=== PATIENT | female | born 1945 | race Two or more races ===

== ENCOUNTER → 2022-07-13 | Outpatient (CLI) | payer OTHER ==
[2022-07-13 08:47] LABS: Basophils # (auto) 0 10 ^3/uL (0-0.2); Eosinophils # (auto) 0.2 10 ^3/uL (0-0.8); Hemoglobin 10.2 g/dL (12.2-16.2); Lymphocytes # (auto) 0.8 10 ^3/uL (0.4-5.4); Mean Corpuscular Volume 81.9 fL (80.0-100.0); Monocytes # (auto) 0.4 10 ^3/uL (0-1.3); Neutrophils # (auto) 2.7 10 ^3/uL (1.6-8.6); White Blood Cell 4.1 10^3/uL (4.4-10.8)
[2022-07-13 08:49] LABS: Basophils % (auto) 0.9 % (0.0-2.0); Eosinophils % (auto) 4.4 % (0.0-7.0); Hematocrit 33.1 % (36.0-46.0); Lymphocytes % (auto) 18.6 % (10.0-50.0); Mean Corpuscular Hemoglobin 25.3 pg (28.0-32.0); Mean Corpuscular Hgb Conc. 30.9 g/dL (32.0-36.0); Monocytes % (auto) 9.1 % (0.0-12.0); Nucleated Red Blood Cells % 0.2 %; Red Blood Cells 4.04 10^6/uL (4.0-5.20); Red Cell Distribution Width 16.1 % (11.8-14.3)
[2022-07-13 09:11] LABS: Calcium 9.3 mg/dL (8.5-10.1); Potassium 4.9 mmol/L (3.5-5.1)
[2022-07-13 09:14] LABS: BUN/Creatinine Ratio 18.4; Bilirubin, Total 0.5 mg/dL (0.2-1.0); Total Protein 8.8 g/dL (6.4-8.2)
[2022-07-14 08:06] LABS: Immunoglobulin G, Serum 1306 mg/dL (586-1602)
== END | disposition home or self-care (01) ==
LOC: LAB 08:18
DX: I12.9 Hypertensive chronic kidney disease with stage 1 through stage 4 chronic kidney disease, or unspecified chronic kidney disease (principal); E11.22 Type 2 diabetes mellitus with diabetic chronic kidney disease; N18.32 Chronic kidney disease, stage 3b; E11.69 Type 2 diabetes mellitus with other specified complication; D63.1 Anemia in chronic kidney disease; R91.8 Other nonspecific abnormal finding of lung field; D47.2 Monoclonal gammopathy
CPT/HCPCS: 36415; 80053; 82232; 82784; 83615; 84155; 84165; 85025; 85652; 86334; 86335

== ENCOUNTER → 2022-08-06 | Outpatient (CLI) | payer OTHER ==
[2022-08-06 08:10] LABS: Basophils # (auto) 0 10 ^3/uL (0-0.2); Eosinophils # (auto) 0.2 10 ^3/uL (0-0.8); Lymphocytes # (auto) 0.8 10 ^3/uL (0.4-5.4); Monocytes # (auto) 0.5 10 ^3/uL (0-1.3)
[2022-08-06 08:13] LABS: Basophils % (auto) 0.6 % (0.0-2.0); Eosinophils % (auto) 4.1 % (0.0-7.0); Hematocrit 30.5 % (36.0-46.0); Hemoglobin 9.9 g/dL (12.2-16.2); Lymphocytes % (auto) 18.6 % (10.0-50.0); Mean Corpuscular Hemoglobin 26.5 pg (28.0-32.0); Mean Corpuscular Hgb Conc. 32.5 g/dL (32.0-36.0); Mean Corpuscular Volume 81.6 fL (80.0-100.0); Monocytes % (auto) 11.7 % (0.0-12.0); Neutrophils # (auto) 2.8 10 ^3/uL (1.6-8.6); Nucleated Red Blood Cells % 0.2 %; Red Blood Cells 3.74 10^6/uL (4.0-5.20); Urine Bacteria NONE SEEN /hpf (None Seen); Urine Blood Negative /uL (Negative); Urine Specific Gravity 1.007 (1.001-1.035); Urine WBC <1 /hpf (0 - 5); White Blood Cell 4.3 10^3/uL (4.4-10.8)
[2022-08-06 09:13] LABS: Albumin 3.8 g/dL (3.4-5.0); BUN/Creatinine Ratio 21.5; Phosphorus 4.4 mg/dL (2.5-4.90); Potassium 4.5 mmol/L (3.5-5.1); Protein, Urine 24.7 mg/dL (0.0-11.9); Uric Acid 5.3 mg/dL (2.6-6.0)
== END | disposition home or self-care (01) ==
LOC: LAB 07:45
PROVIDERS: ATTEND Internal Medicine
DX: N18.30 Chronic kidney disease, stage 3 unspecified (principal); R80.9 Proteinuria, unspecified; E21.3 Hyperparathyroidism, unspecified; D63.1 Anemia in chronic kidney disease; M10.9 Gout, unspecified; E56.9 Vitamin deficiency, unspecified; R82.90 Unspecified abnormal findings in urine
CPT/HCPCS: 36415; 80069; 81001; 82306; 82570; 83970; 84156; 84550; 85025

== ENCOUNTER → 2022-08-18 | Outpatient (CLI) | payer OTHER ==
[2022-08-18 07:59] LABS: Basophils # (auto) 0 10 ^3/uL (0-0.2); Eosinophils # (auto) 0.2 10 ^3/uL (0-0.8); Eosinophils % (auto) 4.5 % (0.0-7.0); Mean Corpuscular Hgb Conc. 31.8 g/dL (32.0-36.0); Monocytes # (auto) 0.4 10 ^3/uL (0-1.3); Neutrophils # (auto) 2.6 10 ^3/uL (1.6-8.6)
[2022-08-18 08:01] LABS: Hematocrit 30.6 % (36.0-46.0); Hemoglobin 9.7 g/dL (12.2-16.2); Lymphocytes # (auto) 0.7 10 ^3/uL (0.4-5.4); Lymphocytes % (auto) 18.5 % (10.0-50.0); Mean Corpuscular Hemoglobin 25.9 pg (28.0-32.0); Mean Corpuscular Volume 81.5 fL (80.0-100.0); Monocytes % (auto) 11.1 % (0.0-12.0); Neutrophils % (auto) 64.9 % (37.0-80.0); Nucleated Red Blood Cells % 0.2 %; Red Blood Cells 3.75 10^6/uL (4.0-5.20)
[2022-08-18 08:34] LABS: Urine Bacteria NONE SEEN /hpf (None Seen); Urine Blood Negative /uL (Negative); Urine Specific Gravity 1.006 (1.001-1.035); Urine WBC 1 /hpf (0 - 5)
[2022-08-18 08:36] LABS: Albumin 3.5 g/dL (3.4-5.0); Calcium 9.2 mg/dL (8.5-10.1); Potassium 4.8 mmol/L (3.5-5.1)
[2022-08-18 08:42] LABS: Bilirubin, Total 0.3 mg/dL (0.2-1.0); Total Protein 8.1 g/dL (6.4-8.2)
== END | disposition home or self-care (01) ==
LOC: LAB 07:40
PROVIDERS: ATTEND Family Medicine
DX: I12.9 Hypertensive chronic kidney disease with stage 1 through stage 4 chronic kidney disease, or unspecified chronic kidney disease (principal); E11.22 Type 2 diabetes mellitus with diabetic chronic kidney disease; N18.9 Chronic kidney disease, unspecified; D50.9 Iron deficiency anemia, unspecified; E44.1 Mild protein-calorie malnutrition
CPT/HCPCS: 36415; 80053; 80061; 81001; 83036; 83540; 84443; 85025

== ENCOUNTER → 2022-09-02 | Outpatient (CLI) | payer OTHER ==
[2022-09-02 08:59] LABS: Basophils # (auto) 0.1 10 ^3/uL (0-0.2); Eosinophils # (auto) 0.2 10 ^3/uL (0-0.8); Hemoglobin 9.8 g/dL (12.2-16.2); Lymphocytes # (auto) 0.6 10 ^3/uL (0.4-5.4); Nucleated Red Blood Cells % 0.2 %
[2022-09-02 09:01] LABS: Basophils % (auto) 1.4 % (0.0-2.0); Eosinophils % (auto) 4.2 % (0.0-7.0); Hematocrit 29.8 % (36.0-46.0); Lymphocytes % (auto) 12.3 % (10.0-50.0); Mean Corpuscular Hemoglobin 26.1 pg (28.0-32.0); Mean Corpuscular Hgb Conc. 32.9 g/dL (32.0-36.0); Mean Corpuscular Volume 79.4 fL (80.0-100.0); Monocytes # (auto) 0.5 10 ^3/uL (0-1.3); Monocytes % (auto) 11.6 % (0.0-12.0); Neutrophils # (auto) 3.2 10 ^3/uL (1.6-8.6); Neutrophils % (auto) 70.5 % (37.0-80.0); Red Blood Cells 3.75 10^6/uL (4.0-5.20); Red Cell Distribution Width 15.8 % (11.8-14.3); White Blood Cell 4.5 10^3/uL (4.4-10.8)
[2022-09-02 09:33] LABS: Albumin 3.5 g/dL (3.4-5.0); Calcium 9.1 mg/dL (8.5-10.1); Potassium 4.6 mmol/L (3.5-5.1)
[2022-09-02 09:39] LABS: BUN/Creatinine Ratio 16.5 (10.0-20.0); Bilirubin, Total 0.4 mg/dL (0.2-1.0); Total Protein 8.3 g/dL (6.4-8.2)
== END | disposition home or self-care (01) ==
LOC: LAB 07:56
PROVIDERS: ATTEND Family Medicine
DX: E11.9 Type 2 diabetes mellitus without complications (principal); E27.1 Primary adrenocortical insufficiency; D64.9 Anemia, unspecified
CPT/HCPCS: 36415; 80053; 80061; 82024; 82043; 82533; 83036; 85025

== ENCOUNTER 2022-09-17 11:10 | Inpatient (IN) | payer OTHER ==
[~2022-09-17] VITALS: Ht 160 cm; Wt 53.6 kg
[2022-09-17 12:09] LABS: Basophils # (auto) 0 10 ^3/uL (0-0.2); Basophils % (auto) 0.3 % (0.0-2.0); Eosinophils # (auto) 0.1 10 ^3/uL (0-0.8); Eosinophils % (auto) 1.4 % (0.0-7.0); Hematocrit 30.9 % (36.0-46.0); Hemoglobin 9.9 g/dL (12.2-16.2); Lymphocytes # (auto) 0.5 10 ^3/uL (0.4-5.4); Mean Corpuscular Hgb Conc. 32.1 g/dL (32.0-36.0); Mean Corpuscular Volume 80.8 fL (80.0-100.0); Monocytes # (auto) 0.7 10 ^3/uL (0-1.3); Monocytes % (auto) 9.7 % (0.0-12.0); Neutrophils # (auto) 5.9 10 ^3/uL (1.6-8.6); Neutrophils % (auto) 81.6 % (37.0-80.0); Nucleated Red Blood Cells % 0.4 %; Red Blood Cells 3.83 10^6/uL (4.0-5.20); Red Cell Distribution Width 17.3 % (11.8-14.3); White Blood Cell 7.2 10^3/uL (4.4-10.8)
[2022-09-17 12:33] LABS: Albumin 3.2 g/dL (3.4-5.0); Calcium 8.8 mg/dL (8.5-10.1); Potassium 4.9 mmol/L (3.5-5.1)
[2022-09-17 12:36] LABS: BUN/Creatinine Ratio 16.6 (10.0-20.0); Bilirubin, Total 0.5 mg/dL (0.2-1.0); Total Protein 7.7 g/dL (6.4-8.2)
[2022-09-17] MEDS ORDERED: ASPirin 325 MG TAB PO ONE ×2 (13:00→18:45)
[2022-09-17] MEDS ORDERED: FUROSEMIDE 20 MG/2 ML VIAL IV ONE ×2 (15:00→17:00)
[2022-09-17] MEDS ORDERED: DEXTROSE (50%) 50ML SYRG IV PRN (16:15)
[2022-09-17] MEDS: AZITHROMYCIN 500MG/ 250ML 250 ML IV SCH (16:47)
[2022-09-17] MEDS ORDERED: ALBUTEROL SULF 2.5 MG/0.5ML(0.5%) NEB SOLN NEB PRN (17:30)
[2022-09-17] MEDS ORDERED: IPRATROPIUM BROM 0.5 MG/2.5ML INH SOL NEB PRN (17:30)
[2022-09-17] MEDS: ACCU-CHEK COMFORT CURVE STRIP VI SCH (18:53)
[2022-09-17] MEDS: cefTRIAXone 1GM/50ML D5W 50 ML IV SCH (18:53)
[2022-09-17] MEDS: InsuLIN REG 1unit/0.01ml Soln (100units/ml) SC SCH (19:04)
[2022-09-17] MEDS: PANTOPRAZOLE 40 MG/10 ML VIAL INJ IV SCH (19:04)
[2022-09-17] MEDS: FUROSEMIDE 40 MG/4 ML VIAL IV SCH (19:12)
[2022-09-17 19:17] VITALS: BP 152/69
[2022-09-18] MEDS: InsuLIN REG 1unit/0.01ml Soln (100units/ml) SC SCH ×6 (01:20→21:29)
[2022-09-18] MEDS: ACCU-CHEK COMFORT CURVE STRIP VI SCH ×5 (01:20→21:26)
[2022-09-18] MEDS: ATORVASTATIN 20 MG TAB PO SCH ×2 (01:21→21:25)
[2022-09-18 03:04] LABS: Creatinine, Urine 23 mg/dL (30.0-125.0); Sodium Urine 102 mmol/L (40-220)
[2022-09-18 04:48] LABS: Basophils # (auto) 0 10 ^3/uL (0-0.2); Eosinophils # (auto) 0.1 10 ^3/uL (0-0.8); Lymphocytes # (auto) 0.3 10 ^3/uL (0.4-5.4)
[2022-09-18 04:52] LABS: Basophils % (auto) 0.1 % (0.0-2.0); Hematocrit 28.5 % (36.0-46.0); Hemoglobin 9.7 g/dL (12.2-16.2); Lymphocytes % (auto) 4.8 % (10.0-50.0); Mean Corpuscular Hemoglobin 26.8 pg (28.0-32.0); Mean Corpuscular Hgb Conc. 34.2 g/dL (32.0-36.0); Mean Corpuscular Volume 78.3 fL (80.0-100.0); Monocytes # (auto) 0.8 10 ^3/uL (0-1.3); Monocytes % (auto) 11.4 % (0.0-12.0); Neutrophils # (auto) 5.8 10 ^3/uL (1.6-8.6); Neutrophils % (auto) 82.7 % (37.0-80.0); Nucleated Red Blood Cells % 0.2 %; Red Blood Cells 3.64 10^6/uL (4.0-5.20); Red Cell Distribution Width 16.8 % (11.8-14.3)
[2022-09-18 05:06] LABS: Potassium 4.5 mmol/L (3.5-5.1)
[2022-09-18 05:15] LABS: BUN/Creatinine Ratio 20.3 (10.0-20.0); Calcium 8.8 mg/dL (8.5-10.1)
[2022-09-18 05:18] LABS: Bilirubin, Total 0.3 mg/dL (0.2-1.0); Total Protein 7.9 g/dL (6.4-8.2)
[2022-09-18] MEDS: FUROSEMIDE 40 MG/4 ML VIAL IV SCH ×2 (06:51→18:12)
[2022-09-18 09:20] VITALS: BP 128/63
[2022-09-18 09:25] VITALS: BP 128/63
[2022-09-18] MEDS: ASPirin 81 mg TAB PO SCH (09:26)
[2022-09-18] MEDS: PANTOPRAZOLE 40 MG/10 ML VIAL INJ IV SCH (09:26)
[2022-09-18] MEDS: ENOXAPARIN SOD 30 MG/0.3 ML SYRINGE SC SCH (09:27)
[2022-09-18] MEDS: LISINOPRIL 5 MG TAB PO SCH (09:27)
[2022-09-18] MEDS: cefTRIAXone 1GM/50ML D5W 50 ML IV SCH (09:28)
[2022-09-18] MEDS ORDERED: ALEN70TA74 PO (09:52)
[2022-09-18] MEDS ORDERED: FERR325T20 PO (09:52)
[2022-09-18] MEDS ORDERED: GLIP2.5T28 PO (09:52)
[2022-09-18] MEDS ORDERED: GLIP-110 PO (09:52)
[2022-09-18] MEDS ORDERED: SIMV10TA84 PO (09:52)
[2022-09-18] MEDS ORDERED: GLUC-149 XX (09:52)
[2022-09-18] MEDS ORDERED: SITA25TA3 PO (09:52)
[2022-09-18] MEDS ORDERED: LOS25T PO (09:52)
[2022-09-18] MEDS ORDERED: AMLO-496 PO (09:52)
[2022-09-18] MEDS ORDERED: ATEN50TA PO (09:52)
[2022-09-18] MEDS ORDERED: GABA300C10 PO (09:52)
[2022-09-18] MEDS ORDERED: LANC-347 TOP (09:52)
[2022-09-18] MEDS ORDERED: DICL1GEL86 EX (10:01)
[2022-09-18] MEDS: AZITHROMYCIN 500MG/ 250ML 250 ML IV SCH (10:47)
[2022-09-18 12:30] VITALS: BP 122/64
[2022-09-18] MEDS: GABAPENTIN 300 MG CAP PO SCH ×2 (16:14→21:25)
[2022-09-18 16:35] LABS: Urine Bacteria NONE SEEN /hpf (None Seen); Urine Blood Negative /uL (Negative); Urine Specific Gravity 1.008 (1.001-1.035); Urine WBC 1 /hpf (0 - 5)
[2022-09-18 17:08] VITALS: BP 122/60
[2022-09-18 22:00] VITALS: BP 119/59
[2022-09-19 05:00] VITALS: BP 120/60
[2022-09-19] MEDS: FUROSEMIDE 40 MG/4 ML VIAL IV SCH (05:25)
[2022-09-19] MEDS: ACCU-CHEK COMFORT CURVE STRIP VI SCH ×4 (06:24→21:16)
[2022-09-19] MEDS: InsuLIN REG 1unit/0.01ml Soln (100units/ml) SC SCH ×4 (06:25→21:19)
[2022-09-19 06:47] LABS: Anion Gap 10 (5-15); Carbon Dioxide 24 mmol/L (21-32); Chloride 100 mmol/L (98-107); Glucose 212 mg/dL (74-106); Potassium 4.4 mmol/L (3.5-5.1); Sodium 134 mmol/L (136-145)
[2022-09-19 06:50] LABS: BUN/Creatinine Ratio 19.6 (10.0-20.0); Blood Urea Nitrogen 39 mg/dL (7-18); GFR African American 31 mL/min; GFR Non-African American 26 mL/min
[2022-09-19 09:00] VITALS: BP 142/68
[2022-09-19] MEDS: GABAPENTIN 300 MG CAP PO SCH ×2 (09:41→21:15)
[2022-09-19] MEDS: ASPirin 81 mg TAB PO SCH (09:41)
[2022-09-19] MEDS: cefTRIAXone 1GM/50ML D5W 50 ML IV SCH (09:41)
[2022-09-19] MEDS: PANTOPRAZOLE 40 MG/10 ML VIAL INJ IV SCH (09:42)
[2022-09-19] MEDS: LISINOPRIL 5 MG TAB PO SCH (09:42)
[2022-09-19] MEDS: ENOXAPARIN SOD 30 MG/0.3 ML SYRINGE SC SCH (09:42)
[2022-09-19] MEDS: AZITHROMYCIN 500MG/ 250ML 250 ML IV SCH ×2 (10:51→12:51)
[2022-09-19 13:00] VITALS: BP 108/55
[2022-09-19] MEDS ORDERED: amLODIPine BESYLATE 5 MG TAB PO ONE (13:15)
[2022-09-19] MEDS ORDERED: METOPROLOL SUCCINATE XL 50 MG TAB PO ONE (14:30)
[2022-09-19] MEDS: ACETAMINOPHEN 325 MG TAB PO PRN (15:28)
[2022-09-19 17:00] VITALS: BP 108/54
[2022-09-19] MEDS: ATORVASTATIN 20 MG TAB PO SCH (21:15)
[2022-09-19 22:00] VITALS: BP 107/52
[2022-09-20 05:00] VITALS: BP 104/53
[2022-09-20] MEDS: ACCU-CHEK COMFORT CURVE STRIP VI SCH ×4 (06:14→21:50)
[2022-09-20] MEDS: InsuLIN REG 1unit/0.01ml Soln (100units/ml) SC SCH ×4 (06:30→21:51)
[2022-09-20 07:08] LABS: Potassium 4.4 mmol/L (3.5-5.1)
[2022-09-20 07:15] LABS: BUN/Creatinine Ratio 21.7 (10.0-20.0); Calcium 8.5 mg/dL (8.5-10.1)
[2022-09-20 09:00] VITALS: BP 116/59
[2022-09-20] MEDS: cefTRIAXone 1GM/50ML D5W 50 ML IV SCH (09:14)
[2022-09-20] MEDS: amLODIPine BESYLATE 5 MG TAB PO SCH (09:15)
[2022-09-20] MEDS: ENOXAPARIN SOD 30 MG/0.3 ML SYRINGE SC SCH (09:15)
[2022-09-20] MEDS: GABAPENTIN 300 MG CAP PO SCH ×2 (09:16→21:50)
[2022-09-20] MEDS: ASPirin 81 mg TAB PO SCH (09:16)
[2022-09-20] MEDS: ACETAMINOPHEN 325 MG TAB PO PRN ×2 (09:16→21:50)
[2022-09-20] MEDS: METOPROLOL SUCCINATE XL 50 MG TAB PO SCH (09:17)
[2022-09-20] MEDS: AZITHROMYCIN 500MG/ 250ML 250 ML IV SCH (10:25)
[2022-09-20 13:00] VITALS: BP 110/52
[2022-09-20] MEDS ORDERED: D5W/SOD CHLO 0.9% 1,000 ML IV ONE (14:45)
[2022-09-20 16:51] VITALS: BP 95/53
[2022-09-20 20:00] VITALS: BP 95/53
[2022-09-20] MEDS: ATORVASTATIN 20 MG TAB PO SCH (21:49)
[2022-09-20 22:00] VITALS: BP 136/67
[2022-09-20 22:08] LABS: Urine Bacteria NONE SEEN /hpf (None Seen); Urine Blood Negative /uL (Negative); Urine Specific Gravity 1.008 (1.001-1.035); Urine WBC 1 /hpf (0 - 5)
[2022-09-20 22:24] LABS: Protein, Urine 16.1 mg/dL (0.0-11.9)
[2022-09-21 05:00] VITALS: BP 134/68
[2022-09-21] MEDS: ACCU-CHEK COMFORT CURVE STRIP VI SCH ×2 (06:20→11:48)
[2022-09-21] MEDS: InsuLIN REG 1unit/0.01ml Soln (100units/ml) SC SCH ×2 (06:23→11:49)
[2022-09-21 07:14] LABS: Potassium 4.7 mmol/L (3.5-5.1)
[2022-09-21 07:21] LABS: BUN/Creatinine Ratio 24.9 (10.0-20.0); Calcium 8.6 mg/dL (8.5-10.1)
[2022-09-21 08:30] VITALS: BP 133/66
[2022-09-21] MEDS: cefTRIAXone 1GM/50ML D5W 50 ML IV SCH (09:08)
[2022-09-21] MEDS: METOPROLOL SUCCINATE XL 50 MG TAB PO SCH (09:09)
[2022-09-21] MEDS: ASPirin 81 mg TAB PO SCH (09:09)
[2022-09-21] MEDS: GABAPENTIN 300 MG CAP PO SCH (09:09)
[2022-09-21] MEDS: amLODIPine BESYLATE 5 MG TAB PO SCH (09:10)
[2022-09-21] MEDS: ENOXAPARIN SOD 30 MG/0.3 ML SYRINGE SC SCH (09:11)
[2022-09-21] MEDS: AZITHROMYCIN 500MG/ 250ML 250 ML IV SCH (10:26)
[2022-09-21 12:33] VITALS: BP 110/53
== END 2022-09-21 16:15 | disposition home or self-care (01) | DRG 280 ==
LOC: ER 11:10 → TELE 16:29 → TELE-CENTR 09-18 08:16 → CENTRAL 09-20 14:06
PROVIDERS: ADMIT Nurse Practitioner Family; ATTEND Internal Medicine
DX: I13.0 Hypertensive heart and chronic kidney disease with heart failure and stage 1 through stage 4 chronic kidney disease, or unspecified chronic kidney disease (principal); I50.41 Acute combined systolic (congestive) and diastolic (congestive) heart failure; I21.4 Non-ST elevation (NSTEMI) myocardial infarction; J18.9 Pneumonia, unspecified organism; E87.1 Hypo-osmolality and hyponatremia; E44.1 Mild protein-calorie malnutrition; N17.9 Acute kidney failure, unspecified; J98.11 Atelectasis; E78.5 Hyperlipidemia, unspecified; Z20.822 Contact with and (suspected) exposure to COVID-19; Z66 Do not resuscitate; E11.65 Type 2 diabetes mellitus with hyperglycemia; E11.22 Type 2 diabetes mellitus with diabetic chronic kidney disease; D64.9 Anemia, unspecified; N18.9 Chronic kidney disease, unspecified; Z79.84 Long term (current) use of oral hypoglycemic drugs; Z79.82 Long term (current) use of aspirin; Z79.899 Other long term (current) drug therapy; Z90.710 Acquired absence of both cervix and uterus; Z68.20 Body mass index [BMI] 20.0-20.9, adult
CPT/HCPCS: 36415; 36600; 71045; 71046; 71250; 76775; 80048; 80053; 81001; 82570; 82805; 82962; 83880; 84156; 84300; 84443; 84484; 84550; 85025; 85379; 87426; 93005; 93306; 93970; 97110; 97116; 97163; 97530; 99291; C9113; G0378; J0696; J1815; J7042

== ENCOUNTER → 2022-09-28 | Outpatient (CLI) | payer OTHER ==
[~2022-09-28] MED LIST: ALEN70TA74 PO; AMLO-496 PO; ATEN50TA PO; DICL1GEL86 EX; GABA300C10 PO; GLIP2.5T28 PO; GLUC-149 XX; LANC-347 TOP; SIMV10TA84 PO
[2022-09-28 08:20] LABS: Eosinophils # (auto) 0.3 10 ^3/uL (0-0.8); Lymphocytes # (auto) 0.6 10 ^3/uL (0.4-5.4); Lymphocytes % (auto) 11.4 % (10.0-50.0); Monocytes # (auto) 0.4 10 ^3/uL (0-1.3); Nucleated Red Blood Cells % 0.1 %
[2022-09-28 08:22] LABS: Basophils # (auto) 0 10 ^3/uL (0-0.2); Basophils % (auto) 0.7 % (0.0-2.0); Eosinophils % (auto) 4.8 % (0.0-7.0); Hematocrit 29.1 % (36.0-46.0); Hemoglobin 9.4 g/dL (12.2-16.2); Mean Corpuscular Hemoglobin 26.1 pg (28.0-32.0); Mean Corpuscular Hgb Conc. 32.5 g/dL (32.0-36.0); Mean Corpuscular Volume 80.3 fL (80.0-100.0); Monocytes % (auto) 8.3 % (0.0-12.0); Neutrophils % (auto) 74.8 % (37.0-80.0); Red Blood Cells 3.62 10^6/uL (4.0-5.20); Red Cell Distribution Width 17.1 % (11.8-14.3); White Blood Cell 5.4 10^3/uL (4.4-10.8)
[2022-09-28 13:23] LABS: Potassium 5.3 mmol/L (3.5-5.1)
[2022-09-28 13:45] LABS: BUN/Creatinine Ratio 14.6 (10.0-20.0); Bilirubin, Total 0.5 mg/dL (0.2-1.0); Calcium 9.4 mg/dL (8.5-10.1); Phosphorus 4.3 mg/dL (2.5-4.90); Total Protein 8.2 g/dL (6.4-8.2)
== END | disposition home or self-care (01) ==
LOC: LAB 08:03
PROVIDERS: ATTEND Family Medicine
DX: I21.4 Non-ST elevation (NSTEMI) myocardial infarction (principal); I24.9 Acute ischemic heart disease, unspecified; J96.01 Acute respiratory failure with hypoxia; N28.9 Disorder of kidney and ureter, unspecified
CPT/HCPCS: 36415; 80053; 80061; 80069; 82043; 83036; 85025

== ENCOUNTER → 2022-10-05 | Outpatient (CLI) | payer OTHER ==
[2022-10-05 07:58] LABS: Hematocrit 29.7 % (36.0-46.0); Hemoglobin 9.4 g/dL (12.2-16.2); Lymphocytes # (auto) 0.7 10 ^3/uL (0.4-5.4); Mean Corpuscular Hemoglobin 25.7 pg (28.0-32.0); Neutrophils # (auto) 3.5 10 ^3/uL (1.6-8.6)
[2022-10-05 08:00] LABS: Basophils # (auto) 0.1 10 ^3/uL (0-0.2); Basophils % (auto) 1.1 % (0.0-2.0); Eosinophils # (auto) 0.2 10 ^3/uL (0-0.8); Lymphocytes % (auto) 14.6 % (10.0-50.0); Mean Corpuscular Hgb Conc. 31.6 g/dL (32.0-36.0); Mean Corpuscular Volume 81.3 fL (80.0-100.0); Monocytes # (auto) 0.5 10 ^3/uL (0-1.3); Monocytes % (auto) 9.6 % (0.0-12.0); Neutrophils % (auto) 69.7 % (37.0-80.0); Nucleated Red Blood Cells % 0.1 %; Red Blood Cells 3.65 10^6/uL (4.0-5.20)
[2022-10-05 08:46] LABS: Albumin 3.4 g/dL (3.4-5.0); Calcium 9.1 mg/dL (8.5-10.1); Potassium 5.1 mmol/L (3.5-5.1)
[2022-10-05 08:49] LABS: BUN/Creatinine Ratio 12.7 (10.0-20.0); Bilirubin, Total 0.4 mg/dL (0.2-1.0); Total Protein 8.6 g/dL (6.4-8.2)
[2022-10-05 10:28] LABS: Folate (Folic Acid) > 24.00 ng/mL (5.38-24)
[2022-10-06 08:06] LABS: Immunoglobulin G, Serum 1191 mg/dL (586-1602)
== END | disposition home or self-care (01) ==
LOC: LAB 07:34
PROVIDERS: ATTEND Internal Medicine Hematology & Oncology
DX: I12.9 Hypertensive chronic kidney disease with stage 1 through stage 4 chronic kidney disease, or unspecified chronic kidney disease (principal); E11.22 Type 2 diabetes mellitus with diabetic chronic kidney disease; N18.32 Chronic kidney disease, stage 3b; C90.00 Multiple myeloma not having achieved remission; R91.8 Other nonspecific abnormal finding of lung field; E11.69 Type 2 diabetes mellitus with other specified complication; D63.1 Anemia in chronic kidney disease
CPT/HCPCS: 36415; 80053; 82232; 82607; 82746; 82784; 83540; 84155; 84165; 85025; 85652; 86334; 86335

== ENCOUNTER → 2022-11-05 | Outpatient (CLI) | payer OTHER ==
[2022-11-05 08:05] LABS: Basophils # (auto) 0 10 ^3/uL (0-0.2); Eosinophils # (auto) 0.2 10 ^3/uL (0-0.8); Eosinophils % (auto) 3.7 % (0.0-7.0); Hematocrit 32.1 % (36.0-46.0); Hemoglobin 10.2 g/dL (12.2-16.2); Lymphocytes # (auto) 0.8 10 ^3/uL (0.4-5.4); Lymphocytes % (auto) 16.1 % (10.0-50.0); Mean Corpuscular Hgb Conc. 31.7 g/dL (32.0-36.0); Monocytes # (auto) 0.5 10 ^3/uL (0-1.3); Neutrophils # (auto) 3.2 10 ^3/uL (1.6-8.6); Neutrophils % (auto) 68.2 % (37.0-80.0); Nucleated Red Blood Cells % 0.1 %; Red Blood Cells 3.91 10^6/uL (4.0-5.20); Red Cell Distribution Width 17.4 % (11.8-14.3); White Blood Cell 4.7 10^3/uL (4.4-10.8)
[2022-11-06 07:06] LABS: Immunoglobulin G, Serum 1257 mg/dL (586-1602)
== END | disposition home or self-care (01) ==
LOC: LAB 07:29
PROVIDERS: ATTEND Internal Medicine Hematology & Oncology
DX: C90.00 Multiple myeloma not having achieved remission (principal); I12.9 Hypertensive chronic kidney disease with stage 1 through stage 4 chronic kidney disease, or unspecified chronic kidney disease; E11.22 Type 2 diabetes mellitus with diabetic chronic kidney disease; N18.32 Chronic kidney disease, stage 3b; D63.1 Anemia in chronic kidney disease; E78.5 Hyperlipidemia, unspecified; R91.8 Other nonspecific abnormal finding of lung field
CPT/HCPCS: 36415; 82784; 83883; 84155; 84165; 85025; 86335

== ENCOUNTER 2022-11-27 10:29 | Inpatient (IN) | payer OTHER ==
[~2022-11-27] VITALS: Ht 152.4 cm; Wt 49.5 kg
[~2022-11-27 10:29] MED LIST changes: -AMLO-496 PO; +AMLO1TAB23 PO; +GABA-1250 PO; -GABA300C10 PO; -GLIP2.5T28 PO; +GLIP2.5T9 PO; +SIMV10TA20 PO; -SIMV10TA84 PO
[2022-11-27 12:14] LABS: Basophils # (auto) 0 10 ^3/uL (0-0.2); Basophils % (auto) 0.3 % (0.0-2.0); Eosinophils # (auto) 0.2 10 ^3/uL (0-0.8); Lymphocytes % (auto) 9.4 % (10.0-50.0); Mean Corpuscular Hemoglobin 25.7 pg (28.0-32.0); Mean Corpuscular Hgb Conc. 31.9 g/dL (32.0-36.0); Mean Corpuscular Volume 80.7 fL (80.0-100.0); White Blood Cell 6.9 10^3/uL (4.4-10.8)
[2022-11-27 12:16] LABS: Hematocrit 28.2 % (36.0-46.0); Lymphocytes # (auto) 0.6 10 ^3/uL (0.4-5.4); Monocytes # (auto) 0.9 10 ^3/uL (0-1.3); Monocytes % (auto) 12.8 % (0.0-12.0); Neutrophils # (auto) 5.1 10 ^3/uL (1.6-8.6); Neutrophils % (auto) 74.5 % (37.0-80.0); Nucleated Red Blood Cells % 0.5 %; Red Cell Distribution Width 16.4 % (11.8-14.3)
[2022-11-27 12:37] LABS: Albumin 3.4 g/dL (3.4-5.0); BUN/Creatinine Ratio 18.2 (10.0-20.0); Calcium 8.6 mg/dL (8.5-10.1)
[2022-11-27 13:18] LABS: Bilirubin, Total 0.5 mg/dL (0.2-1.0); Total Protein 7.4 g/dL (6.4-8.2)
[2022-11-27 13:23] LABS: Potassium 6.3 mmol/L (3.5-5.1)
[2022-11-27] MEDS ORDERED: ALBUTEROL SULF 2.5 MG/0.5ML(0.5%) NEB SOLN NEB ONE (13:45)
[2022-11-27] MEDS ORDERED: SODIUM BICARBONATE 8.4% INJ 50ML SYRINGE IV ONE (13:45)
[2022-11-27] MEDS ORDERED: InsuLIN REG 1unit/0.01ml Soln (100units/ml) IV ONE (13:45)
[2022-11-27] MEDS ORDERED: SODIUM ZIRCONIUM CYCL 10 GM PAK PO ONE (13:45)
[2022-11-27] MEDS ORDERED: DEXTROSE (50%) 50ML SYRG IV ONE (13:45)
[2022-11-27] MEDS ORDERED: DEXTROSE (50%) 50ML SYRG IV PRN (14:45)
[2022-11-27] MEDS ORDERED: ONDANSETRON HCL 4 MG/2 ML VIAL IV PRN (14:45)
[2022-11-27] MEDS ORDERED: DOCUSATE SOD 100 MG CAP PO PRN (14:45)
[2022-11-27] MEDS ORDERED: DexAMETHasone 4 MG TAB PO ONE (15:15)
[2022-11-27] MEDS ORDERED: ALENDRONATE SODIUM 10 MG TAB PO SCH (15:30)
[2022-11-27] MEDS ORDERED: BUMETANIDE 2.5mg/10ml (0.25 mg/ml) INJ IV ONE (15:30)
[2022-11-27] MEDS ORDERED: DEXTROSE 10% 250 ML IV ONE (16:00)
[2022-11-27] MEDS: ACCU-CHEK COMFORT CURVE STRIP VI SCH ×2 (17:22→22:40)
[2022-11-27] MEDS: InsuLIN REG 1unit/0.01ml Soln (100units/ml) SC SCH ×2 (17:25→22:58)
[2022-11-27 20:18] LABS: Urine Bacteria NONE SEEN /hpf (None Seen); Urine Blood Negative /uL (Negative); Urine Specific Gravity 1.007 (1.001-1.035); Urine WBC <1 /hpf (0 - 5)
[2022-11-27 20:39] LABS: Creatinine, Urine 20 mg/dL (30.0-125.0); Sodium Urine 96 mmol/L (40-220)
[2022-11-27] MEDS: BUMETANIDE 1 MG TAB PO SCH (22:56)
[2022-11-27] MEDS: GABAPENTIN 300 MG CAP PO SCH (22:57)
[2022-11-27] MEDS: ATORVASTATIN 20 MG TAB PO SCH (22:57)
[2022-11-28] VITALS (7 sets, daily range): BP systolic 124–136; BP diastolic 55–74
[2022-11-28 06:04] LABS: Basophils # (auto) 0 10 ^3/uL (0-0.2); Basophils % (auto) 0.1 % (0.0-2.0); Eosinophils # (auto) 0 10 ^3/uL (0-0.8); Eosinophils % (auto) 0.1 % (0.0-7.0); Hematocrit 25.6 % (36.0-46.0); Hemoglobin 8.5 g/dL (12.2-16.2); Lymphocytes # (auto) 0.3 10 ^3/uL (0.4-5.4); Lymphocytes % (auto) 8.5 % (10.0-50.0); Mean Corpuscular Hgb Conc. 33.1 g/dL (32.0-36.0); Mean Corpuscular Volume 84.6 fL (80.0-100.0); Monocytes # (auto) 0.1 10 ^3/uL (0-1.3); Monocytes % (auto) 2.8 % (0.0-12.0); Neutrophils # (auto) 3.1 10 ^3/uL (1.6-8.6); Neutrophils % (auto) 88.5 % (37.0-80.0); Nucleated Red Blood Cells % 0.4 %; Red Blood Cells 3.03 10^6/uL (4.0-5.20); Red Cell Distribution Width 15.9 % (11.8-14.3); White Blood Cell 3.5 10^3/uL (4.4-10.8)
[2022-11-28 06:10] LABS: Potassium 5.3 mmol/L (3.5-5.1)
[2022-11-28 06:20] LABS: Albumin 2.8 g/dL (3.4-5.0); BUN/Creatinine Ratio 21.8 (10.0-20.0); Bilirubin, Total 0.5 mg/dL (0.2-1.0); Calcium 8.6 mg/dL (8.5-10.1)
[2022-11-28] MEDS: ACCU-CHEK COMFORT CURVE STRIP VI SCH ×4 (06:31→22:00)
[2022-11-28] MEDS: InsuLIN REG 1unit/0.01ml Soln (100units/ml) SC SCH ×4 (06:31→22:00)
[2022-11-28] MEDS ORDERED: BUMETANIDE 1 MG TAB PO SCH (10:00)
[2022-11-28] MEDS ORDERED: PANTOPRAZOLE 40 MG/10 ML VIAL INJ IV SCH (10:00)
[2022-11-28] MEDS: PANTOPRAZOLE 40 MG/10 ML VIAL INJ IV SCH (10:24)
[2022-11-28] MEDS: ATENOLOL 50 MG TAB PO SCH (10:25)
[2022-11-28] MEDS: GABAPENTIN 300 MG CAP PO SCH ×2 (10:25→23:09)
[2022-11-28] MEDS: amLODIPine BESYLATE 5 MG TAB PO SCH (10:26)
[2022-11-28] MEDS: BUMETANIDE 1 MG TAB PO SCH ×2 (10:27→23:08)
[2022-11-28] MEDS ORDERED: LORazepam 2MG/ML-1ML VIAL IV PRN (22:30)
[2022-11-28] MEDS: ATORVASTATIN 20 MG TAB PO SCH (23:09)
[2022-11-29 05:00] VITALS: BP 123/58
[2022-11-29] MEDS: MORPHINE SULFATE INJ 2 MG/ml SYRG IV PRN (05:57)
[2022-11-29] MEDS: InsuLIN REG 1unit/0.01ml Soln (100units/ml) SC SCH ×4 (06:02→22:03)
[2022-11-29] MEDS: ACCU-CHEK COMFORT CURVE STRIP VI SCH ×4 (06:06→21:48)
[2022-11-29] MEDS: GABAPENTIN 300 MG CAP PO SCH ×2 (09:04→21:48)
[2022-11-29] MEDS: BUMETANIDE 1 MG TAB PO SCH ×2 (09:04→21:48)
[2022-11-29] MEDS: ATENOLOL 50 MG TAB PO SCH (09:05)
[2022-11-29] MEDS: PANTOPRAZOLE 40 MG/10 ML VIAL INJ IV SCH (09:06)
[2022-11-29] MEDS: amLODIPine BESYLATE 5 MG TAB PO SCH (09:06)
[2022-11-29 09:12] VITALS: BP 106/51
[2022-11-29 13:00] VITALS: BP 114/49
[2022-11-29 16:53] VITALS: BP 129/58
[2022-11-29] MEDS: ATORVASTATIN 20 MG TAB PO SCH (21:48)
[2022-11-29 22:00] VITALS: BP 127/48
[2022-11-30] VITALS (8 sets, daily range): BP systolic 104–166; BP diastolic 2–75
[2022-11-30] MEDS: ACCU-CHEK COMFORT CURVE STRIP VI SCH ×4 (06:33→21:30)
[2022-11-30] MEDS: InsuLIN REG 1unit/0.01ml Soln (100units/ml) SC SCH ×4 (06:35→21:29)
[2022-11-30 06:49] LABS: % Iron Saturation 14.3 % (15-50)
[2022-11-30 07:59] LABS: Folate (Folic Acid) 21.65 ng/mL (5.38-24)
[2022-11-30] MEDS ORDERED: ADENOSINE 45 MG in GIVE UN-DILUTED 0 ML IV STA (09:21)
[2022-11-30] MEDS: GABAPENTIN 300 MG CAP PO SCH ×2 (10:00→21:31)
[2022-11-30] MEDS: amLODIPine BESYLATE 5 MG TAB PO SCH (10:00)
[2022-11-30] MEDS: ATENOLOL 50 MG TAB PO SCH (10:00)
[2022-11-30] MEDS: BUMETANIDE 1 MG TAB PO SCH ×2 (10:00→21:30)
[2022-11-30] MEDS: PANTOPRAZOLE 40 MG/10 ML VIAL INJ IV SCH (10:29)
[2022-11-30] MEDS ORDERED: cloNIDine HCL 0.1 MG TAB PO PRN (16:45)
[2022-11-30] MEDS: ATORVASTATIN 20 MG TAB PO SCH (21:31)
[2022-12-01] VITALS (7 sets, daily range): BP systolic 101–110; BP diastolic 46–64
[2022-12-01] MEDS: ACCU-CHEK COMFORT CURVE STRIP VI SCH ×4 (06:25→23:34)
[2022-12-01] MEDS: InsuLIN REG 1unit/0.01ml Soln (100units/ml) SC SCH ×4 (06:26→23:35)
[2022-12-01] MEDS: PANTOPRAZOLE 40 MG/10 ML VIAL INJ IV SCH (09:50)
[2022-12-01] MEDS: GABAPENTIN 300 MG CAP PO SCH ×2 (09:50→23:33)
[2022-12-01] MEDS: ATENOLOL 50 MG TAB PO SCH (09:51)
[2022-12-01] MEDS: BUMETANIDE 1 MG TAB PO SCH ×2 (09:52→23:32)
[2022-12-01] MEDS: amLODIPine BESYLATE 5 MG TAB PO SCH (09:53)
[2022-12-01] MEDS: ATORVASTATIN 20 MG TAB PO SCH (23:33)
[2022-12-02 05:00] VITALS: BP 101/40
[2022-12-02 05:57] LABS: Red Cell Distribution Width 16.1 % (11.8-14.3)
[2022-12-02 06:00] LABS: Hematocrit 24.7 % (36.0-46.0); Hemoglobin 8.1 g/dL (12.2-16.2); Mean Corpuscular Hemoglobin 27.5 pg (28.0-32.0); Mean Corpuscular Volume 83.3 fL (80.0-100.0); Red Blood Cells 2.96 10^6/uL (4.0-5.20); White Blood Cell 7.2 10^3/uL (4.4-10.8)
[2022-12-02 06:04] LABS: INR 1.02 (0.9-1.15); Partial Thromboplastin Time 27.6 sec (24.6-33.4)
[2022-12-02 06:12] LABS: BUN/Creatinine Ratio 28.8 (10.0-20.0); Calcium 8.6 mg/dL (8.5-10.1); Potassium 3.9 mmol/L (3.5-5.1)
[2022-12-02 06:16] LABS: Band Neutrophils % (manual) 0; Basophils % (manual) 0 (0.0-2.0); Blast Cells 0; Eosinophils % (manual) 0 (0-7); Metamyelocytes % 0; Myelocytes % 0; Promyelocytes % 0; Reactive Lymphocytes 0
[2022-12-02] MEDS: ACCU-CHEK COMFORT CURVE STRIP VI SCH ×4 (06:16→22:13)
[2022-12-02] MEDS: InsuLIN REG 1unit/0.01ml Soln (100units/ml) SC SCH ×4 (06:19→22:17)
[2022-12-02 07:35] LABS: Lymphocytes % (manual) 10 (10.0-50.0); Monocytes % (manual) 19 (0-12)
[2022-12-02 08:00] VITALS: BP 103/59
[2022-12-02] MEDS: ATENOLOL 50 MG TAB PO SCH (10:00)
[2022-12-02] MEDS: amLODIPine BESYLATE 5 MG TAB PO SCH (10:00)
[2022-12-02] MEDS: PANTOPRAZOLE 40 MG/10 ML VIAL INJ IV SCH (10:34)
[2022-12-02] MEDS: GABAPENTIN 300 MG CAP PO SCH ×2 (10:34→22:12)
[2022-12-02] MEDS: BUMETANIDE 1 MG TAB PO SCH (10:35)
[2022-12-02 12:00] VITALS: BP 103/50
[2022-12-02 16:00] VITALS: BP 117/60
[2022-12-02] MEDS ORDERED: SODIUM CHLORIDE 0.9% 1,000 ML IV ONE (17:15)
[2022-12-02] MEDS ORDERED: SODIUM FERR GLUC 62.5MG/5ML 125 MG in SODIUM CHL 0.9% 100 ML IV ONE (17:15)
[2022-12-02 22:00] VITALS: BP 128/54
[2022-12-02] MEDS: ATORVASTATIN 20 MG TAB PO SCH (22:13)
[2022-12-03 05:00] VITALS: BP 131/53
[2022-12-03] MEDS: ACCU-CHEK COMFORT CURVE STRIP VI SCH ×4 (06:42→22:22)
[2022-12-03] MEDS: InsuLIN REG 1unit/0.01ml Soln (100units/ml) SC SCH ×4 (06:44→22:00)
[2022-12-03 06:53] LABS: Basophils # (auto) 0.1 10 ^3/uL (0-0.2); Eosinophils # (auto) 0.1 10 ^3/uL (0-0.8); Lymphocytes # (auto) 0.8 10 ^3/uL (0.4-5.4); Mean Corpuscular Hgb Conc. 33.1 g/dL (32.0-36.0); Monocytes # (auto) 1.4 10 ^3/uL (0-1.3)
[2022-12-03 06:55] LABS: Basophils % (auto) 0.9 % (0.0-2.0); Eosinophils % (auto) 1.5 % (0.0-7.0); Hematocrit 23.6 % (36.0-46.0); Hemoglobin 7.8 g/dL (12.2-16.2); Lymphocytes % (auto) 9.5 % (10.0-50.0); Mean Corpuscular Hemoglobin 28.8 pg (28.0-32.0); Mean Corpuscular Volume 87.1 fL (80.0-100.0); Monocytes % (auto) 17.1 % (0.0-12.0); Neutrophils # (auto) 5.7 10 ^3/uL (1.6-8.6); Nucleated Red Blood Cells % 0.1 %; Red Blood Cells 2.71 10^6/uL (4.0-5.20); Red Cell Distribution Width 16.2 % (11.8-14.3); White Blood Cell 8.1 10^3/uL (4.4-10.8)
[2022-12-03 06:57] LABS: Calcium 8.6 mg/dL (8.5-10.1); Potassium 4.3 mmol/L (3.5-5.1)
[2022-12-03 07:00] LABS: BUN/Creatinine Ratio 32.8 (10.0-20.0)
[2022-12-03] MEDS ORDERED: BISACODYL 5 MG EC TAB PO ONE (09:00)
[2022-12-03 09:23] VITALS: BP 113/49
[2022-12-03] MEDS: PANTOPRAZOLE 40 MG/10 ML VIAL INJ IV SCH (09:59)
[2022-12-03] MEDS: ATENOLOL 50 MG TAB PO SCH (10:00)
[2022-12-03] MEDS: GABAPENTIN 300 MG CAP PO SCH ×2 (10:00→22:15)
[2022-12-03] MEDS: amLODIPine BESYLATE 5 MG TAB PO SCH (10:00)
[2022-12-03 13:00] VITALS: BP 99/42
[2022-12-03] MEDS: SODIUM FERR GLUC 62.5MG/5ML 125 MG in SODIUM CHL 0.9% 100 ML IV SCH (13:15)
[2022-12-03 17:26] VITALS: BP 113/54
[2022-12-03] MEDS: MORPHINE SULFATE INJ 2 MG/ml SYRG IV PRN (20:19)
[2022-12-03 22:00] VITALS: BP 151/63
[2022-12-03] MEDS: ATORVASTATIN 20 MG TAB PO SCH (22:23)
[2022-12-04 05:00] VITALS: BP 139/58
[2022-12-04 06:22] LABS: Basophils # (auto) 0.1 10 ^3/uL (0-0.2); Eosinophils # (auto) 0.1 10 ^3/uL (0-0.8)
[2022-12-04 06:25] LABS: Basophils % (auto) 1.1 % (0.0-2.0); Eosinophils % (auto) 1.2 % (0.0-7.0); Hematocrit 22.2 % (36.0-46.0); Hemoglobin 7.2 g/dL (12.2-16.2); Lymphocytes # (auto) 0.6 10 ^3/uL (0.4-5.4); Lymphocytes % (auto) 8.6 % (10.0-50.0); Mean Corpuscular Hemoglobin 27.4 pg (28.0-32.0); Mean Corpuscular Hgb Conc. 32.5 g/dL (32.0-36.0); Mean Corpuscular Volume 84.4 fL (80.0-100.0); Monocytes # (auto) 1.1 10 ^3/uL (0-1.3); Monocytes % (auto) 15.5 % (0.0-12.0); Neutrophils # (auto) 5.4 10 ^3/uL (1.6-8.6); Neutrophils % (auto) 73.6 % (37.0-80.0); Nucleated Red Blood Cells % 0.2 %; Red Blood Cells 2.63 10^6/uL (4.0-5.20); White Blood Cell 7.3 10^3/uL (4.4-10.8)
[2022-12-04] MEDS: InsuLIN REG 1unit/0.01ml Soln (100units/ml) SC SCH ×4 (06:47→21:35)
[2022-12-04] MEDS: ACCU-CHEK COMFORT CURVE STRIP VI SCH ×4 (07:00→21:28)
[2022-12-04] MEDS ORDERED: ALENDRONATE SODIUM 10 MG TAB PO SCH (07:00)
[2022-12-04 08:00] VITALS: BP 141/58
[2022-12-04 09:00] VITALS: BP 141/58
[2022-12-04] MEDS: GABAPENTIN 300 MG CAP PO SCH ×2 (09:57→21:18)
[2022-12-04] MEDS: PANTOPRAZOLE 40 MG/10 ML VIAL INJ IV SCH (09:57)
[2022-12-04] MEDS: amLODIPine BESYLATE 5 MG TAB PO SCH (09:57)
[2022-12-04] MEDS: ATENOLOL 50 MG TAB PO SCH (09:58)
[2022-12-04] MEDS ORDERED: MORPHINE SULFATE INJ 2 MG/ml SYRG ONE (10:21)
[2022-12-04] MEDS: MORPHINE SULFATE INJ 2 MG/ml SYRG IV PRN ×2 (10:29→17:19)
[2022-12-04] MEDS: SODIUM FERR GLUC 62.5MG/5ML 125 MG in SODIUM CHL 0.9% 100 ML IV SCH (12:55)
[2022-12-04 13:00] VITALS: BP 119/81
[2022-12-04 17:00] VITALS: BP 118/53
[2022-12-04 20:00] VITALS: BP 118/53
[2022-12-04] MEDS: ATORVASTATIN 20 MG TAB PO SCH (21:19)
[2022-12-04] MEDS ORDERED: INSULIN LANTUS (GLARGINE) 1 /0.01ml (100units/ml) SC SCH (22:00)
[2022-12-05 04:51] VITALS: BP 130/62
[2022-12-05] MEDS: ACCU-CHEK COMFORT CURVE STRIP VI SCH ×2 (05:59→11:28)
[2022-12-05] MEDS: InsuLIN REG 1unit/0.01ml Soln (100units/ml) SC SCH ×2 (06:01→11:27)
[2022-12-05 06:13] LABS: Hematocrit 22.8 % (36.0-46.0); Hemoglobin 7.5 g/dL (12.2-16.2); Mean Corpuscular Hemoglobin 26.7 pg (28.0-32.0); Mean Corpuscular Volume 81.3 fL (80.0-100.0); Red Blood Cells 2.81 10^6/uL (4.0-5.20); White Blood Cell 6.9 10^3/uL (4.4-10.8)
[2022-12-05 06:14] LABS: Mean Corpuscular Hgb Conc. 32.8 g/dL (32.0-36.0); Red Cell Distribution Width 16.2 % (11.8-14.3)
[2022-12-05 06:44] LABS: Potassium 4.9 mmol/L (3.5-5.1)
[2022-12-05 06:50] LABS: Basophils % (manual) 0 (0.0-2.0); Blast Cells 0; Metamyelocytes % 0; Myelocytes % 0; Promyelocytes % 0; Reactive Lymphocytes 0
[2022-12-05 06:51] LABS: BUN/Creatinine Ratio 27.3 (10.0-20.0); Calcium 8.9 mg/dL (8.5-10.1)
[2022-12-05] MEDS: PANTOPRAZOLE 40 MG/10 ML VIAL INJ IV SCH (09:12)
[2022-12-05] MEDS: GABAPENTIN 300 MG CAP PO SCH (09:12)
[2022-12-05] MEDS: ATENOLOL 50 MG TAB PO SCH (09:13)
[2022-12-05] MEDS: amLODIPine BESYLATE 5 MG TAB PO SCH (09:13)
[2022-12-05 10:47] LABS: Band Neutrophils % (manual) 1; Eosinophils % (manual) 2 (0-7); Lymphocytes % (manual) 16 (10.0-50.0); Monocytes % (manual) 10 (0-12)
[2022-12-05] MEDS ORDERED: FER325T PO (11:22)
[2022-12-05 11:57] VITALS: BP 135/56
== END 2022-12-05 14:00 | disposition home health service (06) | DRG 553 ==
LOC: EDBD 10:29 → ER 10:29 → TELE 14:59 → TELE-WESTW 23:17 → WEST WING 12-01 15:13
PROVIDERS: ADMIT Nurse Practitioner Family; ATTEND Internal Medicine
PROC: 0S9D3ZX Drainage of Left Knee Joint, Percutaneous Approach, Diagnostic (ICD-10-PCS; principal; 2022-12-02)
DX: M17.12 Unilateral primary osteoarthritis, left knee (principal); I50.33 Acute on chronic diastolic (congestive) heart failure; I13.0 Hypertensive heart and chronic kidney disease with heart failure and stage 1 through stage 4 chronic kidney disease, or unspecified chronic kidney disease; N17.9 Acute kidney failure, unspecified; S80.02XA Contusion of left knee, initial encounter; S83.92XA Sprain of unspecified site of left knee, initial encounter; D50.0 Iron deficiency anemia secondary to blood loss (chronic); E11.65 Type 2 diabetes mellitus with hyperglycemia; E11.22 Type 2 diabetes mellitus with diabetic chronic kidney disease; E78.5 Hyperlipidemia, unspecified; E87.5 Hyperkalemia; I25.10 Atherosclerotic heart disease of native coronary artery without angina pectoris; N18.9 Chronic kidney disease, unspecified; W18.39XA Other fall on same level, initial encounter; Y93.89 Activity, other specified; I25.2 Old myocardial infarction; Y92.89 Other specified places as the place of occurrence of the external cause; Y99.8 Other external cause status; Z82.49 Family history of ischemic heart disease and other diseases of the circulatory system; Z83.3 Family history of diabetes mellitus; Z87.442 Personal history of urinary calculi; Z90.710 Acquired absence of both cervix and uterus
CPT/HCPCS: 36415; 70450; 70551; 71045; 71250; 73562; 73610; 76942; 78452; 80048; 80053; 81001; 82270; 82570; 82607; 82746; 82962; 83036; 83540; 83550; 83615; 83735; 83880; 84132; 84300; 84443; 84484; 85007; 85025; 85027; 85045; 85610; 85730; 86038; 86880; 86885; 87205; 93005; 93017; 93886; 93926; 94640; 95819; 96374; 97110; 97116; 97163; 97530; C9113; G0378; J0153; J1815; J2405

== ENCOUNTER → 2022-12-20 | Outpatient (CLI) | payer OTHER ==
[~2022-12-20] MED LIST changes: +FER325T PO
[2022-12-20 06:39] LABS: Lymphocytes # (auto) 0.9 10 ^3/uL (0.4-5.4); Mean Corpuscular Volume 82.4 fL (80.0-100.0); Red Blood Cells 2.99 10^6/uL (4.0-5.20); Red Cell Distribution Width 18.2 % (11.8-14.3)
[2022-12-20 06:43] LABS: Basophils # (auto) 0 10 ^3/uL (0-0.2); Basophils % (auto) 0.7 % (0.0-2.0); Eosinophils # (auto) 0.6 10 ^3/uL (0-0.8); Eosinophils % (auto) 9.7 % (0.0-7.0); Hematocrit 24.6 % (36.0-46.0); Lymphocytes % (auto) 15.2 % (10.0-50.0); Mean Corpuscular Hemoglobin 26.8 pg (28.0-32.0); Mean Corpuscular Hgb Conc. 32.5 g/dL (32.0-36.0); Monocytes # (auto) 0.6 10 ^3/uL (0-1.3); Monocytes % (auto) 10.1 % (0.0-12.0); Neutrophils # (auto) 3.8 10 ^3/uL (1.6-8.6); Neutrophils % (auto) 64.3 % (37.0-80.0); Nucleated Red Blood Cells % 0.3 %
[2022-12-20 07:36] LABS: Albumin 3.2 g/dL (3.4-5.0)
[2022-12-20 07:47] LABS: Bilirubin, Total 0.5 mg/dL (0.2-1.0); Total Protein 7.2 g/dL (6.4-8.2)
== END | disposition home or self-care (01) ==
LOC: LAB 06:10
PROVIDERS: ATTEND Family Medicine
DX: E11.42 Type 2 diabetes mellitus with diabetic polyneuropathy (principal); N18.32 Chronic kidney disease, stage 3b; E11.21 Type 2 diabetes mellitus with diabetic nephropathy; E11.65 Type 2 diabetes mellitus with hyperglycemia; D35.01 Benign neoplasm of right adrenal gland; D63.1 Anemia in chronic kidney disease; R63.0 Anorexia
CPT/HCPCS: 36415; 80053; 80061; 82043; 83036; 85025

== ENCOUNTER 2023-02-01 10:43 | Inpatient (IN) | payer OTHER ==
[2023-02-01] VITALS (9 sets, daily range): BP systolic 102–109; BP diastolic 45–49; PULSE 60–69; RESP 11–17; TEMP 97.7–98.5; O2SAT 98
[~2023-02-01] VITALS: Ht 160 cm; Wt 51.8 kg
[2023-02-01 12:00] LABS: Basophils # (auto) 0 10 ^3/uL (0-0.2); Eosinophils # (auto) 0 10 ^3/uL (0-0.8); Nucleated Red Blood Cells % 0.3 %
[2023-02-01 12:02] LABS: Basophils % (auto) 0.5 % (0.0-2.0); Eosinophils % (auto) 0.3 % (0.0-7.0); Hematocrit 20.9 % (36.0-46.0); Lymphocytes # (auto) 0.4 10 ^3/uL (0.4-5.4); Lymphocytes % (auto) 6.9 % (10.0-50.0); Mean Corpuscular Hemoglobin 27.4 pg (28.0-32.0); Mean Corpuscular Hgb Conc. 30.3 g/dL (32.0-36.0); Mean Corpuscular Volume 90.3 fL (80.0-100.0); Monocytes # (auto) 0.5 10 ^3/uL (0-1.3); Neutrophils # (auto) 5.1 10 ^3/uL (1.6-8.6); Neutrophils % (auto) 84.3 % (37.0-80.0); Red Blood Cells 2.31 10^6/uL (4.0-5.20)
[2023-02-01 12:12] LABS: Alanine Aminotransferase 55 U/L (7-40); Albumin 3.6 g/dL (3.2-4.8); Alkaline Phosphatase 76 U/L (46-116); Anion Gap 9.3 (5-15); Aspartate Aminotransferase 28 U/L (13-40); BUN/Creatinine Ratio 27.1 (10.0-20.0); Bilirubin, Total 0.4 mg/dL (0.2-1.0); Blood Urea Nitrogen 74 mg/dL (9-23); Calcium 7.8 mg/dL (8.5-10.1); Carbon Dioxide 19.7 mmol/L (20-30); Chloride 101 mmol/L (98-107); Potassium 5.2 mmol/L (3.5-5.1); Sodium 130 mmol/L (136-145); Total Protein 6.2 g/dL (5.7-8.2)
[2023-02-01 12:19] LABS: Glucose 458 mg/dL (74-106)
[2023-02-01] MEDS ORDERED: InsuLIN REG 1unit/0.01ml Soln (100units/ml) IV ONE (12:45)
[2023-02-01] MEDS ORDERED: SODIUM CHLORIDE 0.9% 1,000 ML IV ONE (12:45)
[2023-02-01] MEDS ORDERED: ASPirin 325 MG TAB PO ONE (12:45)
[2023-02-01 13:10] LABS: Red Cell Distribution Width 22.1 % (11.8-14.3)
[2023-02-01 13:13] LABS: Hemoglobin 6.3 g/dL (12.2-16.2)
[2023-02-01] MEDS ORDERED: PANTOPRAZOLE 40 MG/10 ML VIAL INJ IV ONE (13:30)
[2023-02-01 15:16] LABS: Urine Bacteria FEW /hpf (None Seen); Urine Blood Negative /uL (Negative); Urine Clarity Clear (Clear); Urine Color Colorless (Yellow); Urine Protein, UAD Negative (Negative); Urine Specific Gravity 1.012 (1.001-1.035); Urine Urobilinogen Normal (Negative); Urine WBC 4 /hpf (0 - 5)
[2023-02-01 15:17] LABS: Hematocrit 21.1 % (36.0-46.0)
[2023-02-01 16:15] LABS: Hemoglobin 6.6 g/dL (12.2-16.2)
[2023-02-01] MEDS ORDERED: DEXTROSE (50%) 50ML SYRG IV PRN (18:15)
[2023-02-01] MEDS ORDERED: MORPHINE SULFATE INJ 2 MG/ml SYRG IV PRN (18:15)
[2023-02-01] MEDS ORDERED: NITROGLYCERIN 0.4 MG SL TAB SL PRN (18:15)
[2023-02-01] MEDS ORDERED: FUROSEMIDE 20 MG/2 ML VIAL IV ONE (18:30)
[2023-02-01] MEDS ORDERED: ALENDRONATE SODIUM 10 MG TAB PO SCH (19:00)
[2023-02-01 20:22] LABS: Folate (Folic Acid) > 24.00 ng/mL (>5.38)
[2023-02-01] MEDS ORDERED: ACETAMINOPHEN 325 MG TAB PO PRN (20:45)
[2023-02-01] MEDS: ACETAMINOPHEN 325 MG TAB PO PRN (20:58)
[2023-02-01] MEDS: ACCU-CHEK COMFORT CURVE STRIP VI SCH (22:41)
[2023-02-01] MEDS: InsuLIN REG 1unit/0.01ml Soln (100units/ml) SC SCH (22:42)
[2023-02-01] MEDS: GABAPENTIN 300 MG CAP PO SCH (22:43)
[2023-02-01] MEDS: ATORVASTATIN 20 MG TAB PO SCH (22:43)
[2023-02-01 23:12] LABS: % Iron Saturation 41.6 % (15-50)
[2023-02-02] VITALS (13 sets, daily range): BP systolic 101–129; BP diastolic 42–65; PULSE 57–72; RESP 11–20; TEMP 97.1–98.2; O2SAT 93–99
[2023-02-02 02:35] LABS: Hematocrit 28.6 % (36.0-46.0); Hemoglobin 9.6 g/dL (12.2-16.2)
[2023-02-02] MEDS: InsuLIN REG 1unit/0.01ml Soln (100units/ml) SC SCH ×4 (06:42→22:20)
[2023-02-02] MEDS: ACCU-CHEK COMFORT CURVE STRIP VI SCH ×4 (06:43→21:59)
[2023-02-02 07:09] LABS: Basophils # (auto) 0 10 ^3/uL (0-0.2); Basophils % (auto) 0.9 % (0.0-2.0); Eosinophils # (auto) 0.5 10 ^3/uL (0-0.8); Eosinophils % (auto) 9.8 % (0.0-7.0); Hematocrit 28.8 % (36.0-46.0); Hemoglobin 9.6 g/dL (12.2-16.2); Lymphocytes # (auto) 0.5 10 ^3/uL (0.4-5.4); Lymphocytes % (auto) 10.7 % (10.0-50.0); Mean Corpuscular Hemoglobin 30.2 pg (28.0-32.0); Mean Corpuscular Hgb Conc. 33.5 g/dL (32.0-36.0); Mean Corpuscular Volume 90.3 fL (80.0-100.0); Monocytes # (auto) 0.5 10 ^3/uL (0-1.3); Monocytes % (auto) 9.4 % (0.0-12.0); Neutrophils # (auto) 3.3 10 ^3/uL (1.6-8.6); Neutrophils % (auto) 69.2 % (37.0-80.0); Nucleated Red Blood Cells % 0.3 %; Red Blood Cells 3.19 10^6/uL (4.0-5.20); Red Cell Distribution Width 18.3 % (11.8-14.3); White Blood Cell 4.8 10^3/uL (4.4-10.8)
[2023-02-02 07:17] LABS: Alanine Aminotransferase 38 U/L (7-40); Albumin 3.3 g/dL (3.2-4.8); Alkaline Phosphatase 63 U/L (46-116); Anion Gap 10.1 (5-15); Aspartate Aminotransferase 17 U/L (13-40); BUN/Creatinine Ratio 21.5 (10.0-20.0); Calcium 7.7 mg/dL (8.5-10.1); Carbon Dioxide 21.9 mmol/L (20-30); Chloride 107 mmol/L (98-107); Glucose 130 mg/dL (74-106); Potassium 4.4 mmol/L (3.5-5.1); Sodium 139 mmol/L (136-145)
[2023-02-02 07:18] LABS: Bilirubin, Total 0.6 mg/dL (0.2-1.0)
[2023-02-02 07:32] LABS: Blood Urea Nitrogen 47 mg/dL (9-23)
[2023-02-02 08:39] LABS: Wright Stain Ready for Review
[2023-02-02] MEDS: GABAPENTIN 300 MG CAP PO SCH (09:36)
[2023-02-02] MEDS: PANTOPRAZOLE 40 MG TAB PO SCH (09:36)
[2023-02-02] MEDS: FERROUS SULFATE 325mg EC TAB PO SCH (09:36)
[2023-02-02 09:38] LABS: Folate (Folic Acid) 18.52 ng/mL (>5.38)
[2023-02-02] MEDS: ATENOLOL 50 MG TAB PO SCH (09:39)
[2023-02-02] MEDS: FUROSEMIDE 20 MG/2 ML VIAL IV SCH (09:39)
[2023-02-02] MEDS: amLODIPine BESYLATE 5 MG TAB PO SCH (09:39)
[2023-02-02 11:13] LABS: % Iron Saturation 74.7 % (15-50)
[2023-02-02] MEDS ORDERED: SODIUM CHLORIDE 0.9% 1,000 ML IV SCH (11:30)
[2023-02-02] MEDS ORDERED: SODIUM CHLORIDE 0.9% 1,000 ML IV ONE (11:30)
[2023-02-02] MEDS ORDERED: fentaNYL CITRATE 100 MCG/2 ML VL ONE (13:45)
[2023-02-02] MEDS ORDERED: MIDAZOLAM HCL 2MG/2ML 2ml VIAL (1mg/ml) ONE (13:45)
[2023-02-02] MEDS ORDERED: LIDOCAINE 2%HCL (LOCAL ANESTH.) INJ 20ML MDV ONE (13:45)
[2023-02-02] MEDS ORDERED: IODIXANOL 320MG/ML 100ML BTL IV ONE (13:49)
[2023-02-02] MEDS: ATORVASTATIN 20 MG TAB PO SCH (22:08)
[2023-02-03 05:00] VITALS: BP 128/63; PULSE 70; RESP 16; TEMP 97.9; O2SAT 96
[2023-02-03] MEDS: ACCU-CHEK COMFORT CURVE STRIP VI SCH ×3 (06:28→17:06)
[2023-02-03] MEDS: InsuLIN REG 1unit/0.01ml Soln (100units/ml) SC SCH ×3 (06:28→17:06)
[2023-02-03 08:00] VITALS: PULSE 69; RESP 18; O2SAT 99
[2023-02-03 08:32] LABS: Basophils # (auto) 0 10 ^3/uL (0-0.2); Basophils % (auto) 0.7 % (0.0-2.0); Eosinophils # (auto) 0.3 10 ^3/uL (0-0.8); Eosinophils % (auto) 6.3 % (0.0-7.0); Hematocrit 30.1 % (36.0-46.0); Hemoglobin 9.9 g/dL (12.2-16.2); Lymphocytes # (auto) 0.6 10 ^3/uL (0.4-5.4); Lymphocytes % (auto) 12.4 % (10.0-50.0); Mean Corpuscular Hemoglobin 29.9 pg (28.0-32.0); Mean Corpuscular Volume 90.6 fL (80.0-100.0); Monocytes # (auto) 0.5 10 ^3/uL (0-1.3); Monocytes % (auto) 9.2 % (0.0-12.0); Neutrophils # (auto) 3.7 10 ^3/uL (1.6-8.6); Neutrophils % (auto) 71.4 % (37.0-80.0); Nucleated Red Blood Cells % 0.4 %; Red Blood Cells 3.32 10^6/uL (4.0-5.20); Red Cell Distribution Width 18.4 % (11.8-14.3); White Blood Cell 5.1 10^3/uL (4.4-10.8)
[2023-02-03 08:41] LABS: Alanine Aminotransferase 29 U/L (7-40); Albumin 3.3 g/dL (3.2-4.8); Alkaline Phosphatase 63 U/L (46-116); Anion Gap 8.9 (5-15); Aspartate Aminotransferase 13 U/L (13-40); BUN/Creatinine Ratio 21.4 (10.0-20.0); Bilirubin, Total 0.7 mg/dL (0.2-1.0); Calcium 8.1 mg/dL (8.5-10.1); Carbon Dioxide 22.1 mmol/L (20-30); Chloride 108 mmol/L (98-107); Glucose 210 mg/dL (74-106); Potassium 4.4 mmol/L (3.5-5.1); Sodium 139 mmol/L (136-145); Total Protein 6.1 g/dL (5.7-8.2)
[2023-02-03 08:59] LABS: Blood Urea Nitrogen 34 mg/dL (9-23)
[2023-02-03 09:00] VITALS: BP 118/58; PULSE 65; PULSE 69; RESP 16; RESP 18; TEMP 98.3; O2SAT 99
[2023-02-03] MEDS: amLODIPine BESYLATE 5 MG TAB PO SCH (10:00)
[2023-02-03] MEDS: ATENOLOL 50 MG TAB PO SCH (10:00)
[2023-02-03] MEDS: FUROSEMIDE 20 MG/2 ML VIAL IV SCH (10:00)
[2023-02-03] MEDS: PANTOPRAZOLE 40 MG TAB PO SCH (10:09)
[2023-02-03] MEDS: FERROUS SULFATE 325mg EC TAB PO SCH (10:09)
[2023-02-03] MEDS: GABAPENTIN 300 MG CAP PO SCH (10:09)
[2023-02-03 13:00] VITALS: BP 120/56; PULSE 66; RESP 18; TEMP 97.9; O2SAT 99
[2023-02-03] MEDS: ACETAMINOPHEN 325 MG TAB PO PRN (14:59)
[2023-02-03 15:02] VITALS: BP 118/58; PULSE 69; TEMP 36.6
[2023-02-03] MEDS ORDERED: ASPI-498 PO (15:30)
[2023-02-03 15:59] VITALS: TEMP 98.3
== END 2023-02-03 18:17 | disposition home health service (06) | DRG 840 ==
LOC: ER 10:43 → TELE 18:16 → TELE-WESTW 02-02 01:10 → WEST WING 02-02 23:43
PROVIDERS: ADMIT Internal Medicine; ATTEND Internal Medicine
PROC: 30233N1 Transfusion of Nonautologous Red Blood Cells into Peripheral Vein, Percutaneous Approach (ICD-10-PCS; 2023-02-01)
PROC: 06H03DZ Insertion of Intraluminal Device into Inferior Vena Cava, Percutaneous Approach (ICD-10-PCS; principal; 2023-02-02)
PROC: B519YZZ Fluoroscopy of Inferior Vena Cava using Other Contrast (ICD-10-PCS; 2023-02-02)
DX: C90.00 Multiple myeloma not having achieved remission (principal); I21.4 Non-ST elevation (NSTEMI) myocardial infarction; I50.33 Acute on chronic diastolic (congestive) heart failure; I82.412 Acute embolism and thrombosis of left femoral vein; N17.9 Acute kidney failure, unspecified; E87.1 Hypo-osmolality and hyponatremia; K92.1 Melena; G45.9 Transient cerebral ischemic attack, unspecified; I11.0 Hypertensive heart disease with heart failure; D64.9 Anemia, unspecified; E87.5 Hyperkalemia; R55 Syncope and collapse; Z60.2 Problems related to living alone; E16.2 Hypoglycemia, unspecified; E11.65 Type 2 diabetes mellitus with hyperglycemia; E11.42 Type 2 diabetes mellitus with diabetic polyneuropathy; I25.2 Old myocardial infarction; Z82.49 Family history of ischemic heart disease and other diseases of the circulatory system; Z83.3 Family history of diabetes mellitus; Z86.718 Personal history of other venous thrombosis and embolism; Z95.828 Presence of other vascular implants and grafts; Z87.442 Personal history of urinary calculi; Z90.710 Acquired absence of both cervix and uterus; Z91.81 History of falling
CPT/HCPCS: 36415; 37619; 70450; 72125; 74176; 76937; 80053; 81001; 82270; 82607; 82746; 82962; 83036; 83540; 83550; 83880; 84443; 84484; 85014; 85018; 85025; 85045; 86850; 86900; 86901; 86920; 93005; 93886; 93970; 99152; C1894; C9113; G0378; J1815; J2250; Q9967

== ENCOUNTER 2023-02-26 13:04 | Inpatient (IN) | payer OTHER ==
[~2023-02-26] VITALS: Ht 160 cm; Wt 41.0 kg
[~2023-02-26 13:04] MED LIST changes: +ASPI-498 PO
[2023-02-26 14:02] VITALS: O2SAT 93
[2023-02-26 14:05] LABS: Basophils # (auto) 0 10 ^3/uL (0-0.2); Basophils % (auto) 0.1 % (0.0-2.0); Eosinophils # (auto) 0.3 10 ^3/uL (0-0.8); Hemoglobin 7.4 g/dL (12.2-16.2); Mean Corpuscular Hemoglobin 29.5 pg (28.0-32.0); Nucleated Red Blood Cells % 0.3 %
[2023-02-26 14:07] LABS: Eosinophils % (auto) 4.9 % (0.0-7.0); Hematocrit 23.3 % (36.0-46.0); Lymphocytes # (auto) 0.4 10 ^3/uL (0.4-5.4); Lymphocytes % (auto) 6.6 % (10.0-50.0); Mean Corpuscular Hgb Conc. 31.7 g/dL (32.0-36.0); Mean Corpuscular Volume 93.2 fL (80.0-100.0); Monocytes # (auto) 0.4 10 ^3/uL (0-1.3); Monocytes % (auto) 5.9 % (0.0-12.0); Neutrophils % (auto) 82.5 % (37.0-80.0); Red Cell Distribution Width 17.2 % (11.8-14.3)
[2023-02-26 14:14] LABS: Alanine Aminotransferase 47 U/L (7-40); Albumin 3.5 g/dL (3.2-4.8); Alkaline Phosphatase 112 U/L (46-116); Anion Gap 8 (5-15); Aspartate Aminotransferase 43 U/L (13-40); BUN/Creatinine Ratio 24.8 (10.0-20.0); Bilirubin, Total 0.3 mg/dL (0.2-1.0); Blood Urea Nitrogen 38 mg/dL (9-23); Calcium 8.4 mg/dL (8.7-10.4); Carbon Dioxide 23 mmol/L (20-30); Chloride 103 mmol/L (98-107); Glucose 161 mg/dL (74-106); Lipase 39 U/L (12-53); Magnesium 2.3 mg/dL (1.6-2.6); Sodium 134 mmol/L (136-145); Total Protein 6.5 g/dL (5.7-8.2)
[2023-02-26 14:17] LABS: Potassium 5.8 mmol/L (3.5-5.1)
[2023-02-26] MEDS ORDERED: SODIUM ZIRCONIUM CYCL 10 GM PAK PO ONE (14:30)
[2023-02-26] MEDS ORDERED: AZITHROMYCIN 500MG/ 250ML 250 ML IV ONE (15:15)
[2023-02-26 15:36] LABS: Erythrocyte Sedimentation Rate 121 mm/hr (0-20)
[2023-02-26] MEDS: FOLIC ACID 1 MG, MULTIPLE VITAMIN 10 ML, MAGNESIUM SULF SDV 50% 8 MEQ, THIAMINE INJ 100... INJ SCH ×5 (15:45)
[2023-02-26 16:22] LABS: % Iron Saturation 7.5 % (15-50)
[2023-02-26 16:35] LABS: Prothrombin Time 10.5 sec (9.3-11.8)
[2023-02-26 19:30] VITALS: PULSE 90; RESP 20; O2SAT 99
[2023-02-26] MEDS ORDERED: ONDANSETRON HCL 4 MG/2 ML VIAL IV PRN (20:45)
[2023-02-26] MEDS ORDERED: DEXTROSE (50%) 50ML SYRG IV PRN (20:45)
[2023-02-26] MEDS ORDERED: IBUPROFEN 400 MG TAB PO PRN (20:45)
[2023-02-26] MEDS ORDERED: DOCUSATE SOD 100 MG CAP PO PRN (20:45)
[2023-02-26] MEDS: SODIUM CHLORIDE 0.9% 1,000 ML IV SCH (20:56)
[2023-02-26] MEDS: ACCU-CHEK COMFORT CURVE STRIP VI SCH (22:22)
[2023-02-26] MEDS ORDERED: NITROGLYCERIN 0.4 MG SL TAB SL PRN (22:30)
[2023-02-26] MEDS ORDERED: MORPHINE SULFATE INJ 2 MG/ml SYRG IV PRN (22:30)
[2023-02-26] MEDS: ATORVASTATIN 20 MG TAB PO SCH (22:39)
[2023-02-26] MEDS: InsuLIN REG 1unit/0.01ml Soln (100units/ml) SC SCH (22:40)
[2023-02-27] VITALS (14 sets, daily range): BP systolic 100–139; BP diastolic 39–68; PULSE 76–92; RESP 14–18; TEMP 97.7–98.5; O2SAT 93–100
[2023-02-27] MEDS ORDERED: INSLANTI SC (00:52)
[2023-02-27 05:56] LABS: Basophils # (auto) 0 10 ^3/uL (0-0.2); Eosinophils # (auto) 0.2 10 ^3/uL (0-0.8); Lymphocytes # (auto) 0.6 10 ^3/uL (0.4-5.4); Monocytes # (auto) 0.5 10 ^3/uL (0-1.3)
[2023-02-27 05:58] LABS: Basophils % (auto) 0.4 % (0.0-2.0); Eosinophils % (auto) 5.3 % (0.0-7.0); Hematocrit 18.5 % (36.0-46.0); Lymphocytes % (auto) 13.5 % (10.0-50.0); Mean Corpuscular Hemoglobin 28.9 pg (28.0-32.0); Mean Corpuscular Hgb Conc. 31.9 g/dL (32.0-36.0); Mean Corpuscular Volume 90.6 fL (80.0-100.0); Monocytes % (auto) 11.1 % (0.0-12.0); Neutrophils # (auto) 2.9 10 ^3/uL (1.6-8.6); Neutrophils % (auto) 69.7 % (37.0-80.0); Nucleated Red Blood Cells % 0.3 %; Red Blood Cells 2.04 10^6/uL (4.0-5.20); Red Cell Distribution Width 16.8 % (11.8-14.3); White Blood Cell 4.2 10^3/uL (4.4-10.8)
[2023-02-27] MEDS: InsuLIN REG 1unit/0.01ml Soln (100units/ml) SC SCH ×4 (06:07→22:00)
[2023-02-27] MEDS: ACCU-CHEK COMFORT CURVE STRIP VI SCH ×4 (06:07→22:10)
[2023-02-27 06:20] LABS: Hemoglobin 5.9 g/dL (12.2-16.2)
[2023-02-27 06:48] LABS: Alanine Aminotransferase 34 U/L (7-40); Alkaline Phosphatase 82 U/L (46-116); Anion Gap 7 (5-15); Aspartate Aminotransferase 26 U/L (13-40); BUN/Creatinine Ratio 21.1 (10.0-20.0); Calcium 7.9 mg/dL (8.7-10.4); Carbon Dioxide 23 mmol/L (20-30); Chloride 109 mmol/L (98-107); Glucose 82 mg/dL (74-106); Potassium 4.5 mmol/L (3.5-5.1); Sodium 139 mmol/L (136-145); Total Protein 5.7 g/dL (5.7-8.2)
[2023-02-27 06:51] LABS: Bilirubin, Total 0.2 mg/dL (0.2-1.0); Blood Urea Nitrogen 26 mg/dL (9-23)
[2023-02-27] MEDS: ASPirin 81 mg TAB PO SCH (10:07)
[2023-02-27] MEDS: AZITHROMYCIN 500MG/ 250ML 250 ML IV SCH (10:07)
[2023-02-27] MEDS: SODIUM CHLORIDE 0.9% 1,000 ML IV SCH (10:08)
[2023-02-27] MEDS: FOLIC ACID 1 MG, MULTIPLE VITAMIN 10 ML, MAGNESIUM SULF SDV 50% 8 MEQ, THIAMINE INJ 100... INJ SCH ×5 (12:00)
[2023-02-27] MEDS: HYDROcodone-ACET 5/325MG TAB PO PRN (19:56)
[2023-02-27] MEDS ORDERED: FOLIC ACID 1 MG, MULTIPLE VITAMIN 10 ML, MAGNESIUM SULF SDV 50% 8 MEQ, THIAMINE INJ 100... INJ ONE ×5 (21:00)
[2023-02-27] MEDS: PANTOPRAZOLE 40 MG/10 ML VIAL INJ IV SCH (22:10)
[2023-02-27] MEDS: ATORVASTATIN 20 MG TAB PO SCH (22:10)
[2023-02-28] VITALS (8 sets, daily range): BP systolic 130–143; BP diastolic 61–70; PULSE 82–101; RESP 16–19; TEMP 36.7; O2SAT 93–100
[2023-02-28] MEDS: HYDROcodone-ACET 5/325MG TAB PO PRN (01:49)
[2023-02-28] MEDS: SODIUM CHLORIDE 0.9% 1,000 ML IV SCH (06:05)
[2023-02-28] MEDS: ACCU-CHEK COMFORT CURVE STRIP VI SCH ×3 (06:24→17:00)
[2023-02-28] MEDS: InsuLIN REG 1unit/0.01ml Soln (100units/ml) SC SCH ×3 (06:25→17:00)
[2023-02-28] MEDS: AZITHROMYCIN 500MG/ 250ML 250 ML IV SCH (08:58)
[2023-02-28] MEDS: PANTOPRAZOLE 40 MG/10 ML VIAL INJ IV SCH (08:59)
[2023-02-28] MEDS: ASPirin 81 mg TAB PO SCH (08:59)
[2023-02-28 11:29] LABS: Basophils # (auto) 0 10 ^3/uL (0-0.2); Basophils % (auto) 0.7 % (0.0-2.0); Eosinophils # (auto) 0.2 10 ^3/uL (0-0.8); Eosinophils % (auto) 4.3 % (0.0-7.0); Hematocrit 32.9 % (36.0-46.0); Hemoglobin 10.9 g/dL (12.2-16.2); Lymphocytes # (auto) 0.4 10 ^3/uL (0.4-5.4); Lymphocytes % (auto) 6.8 % (10.0-50.0); Mean Corpuscular Hgb Conc. 33.1 g/dL (32.0-36.0); Mean Corpuscular Volume 90.5 fL (80.0-100.0); Monocytes # (auto) 0.4 10 ^3/uL (0-1.3); Monocytes % (auto) 6.2 % (0.0-12.0); Neutrophils # (auto) 4.6 10 ^3/uL (1.6-8.6); Nucleated Red Blood Cells % 0.2 %; Red Blood Cells 3.63 10^6/uL (4.0-5.20); Red Cell Distribution Width 15.7 % (11.8-14.3); White Blood Cell 5.6 10^3/uL (4.4-10.8)
[2023-02-28] MEDS: FOLIC ACID 1 MG, MULTIPLE VITAMIN 10 ML, MAGNESIUM SULF SDV 50% 8 MEQ, THIAMINE INJ 100... INJ SCH ×5 (12:00)
[2023-02-28 12:09] LABS: % Iron Saturation 21.7 % (15-50); Alanine Aminotransferase 40 U/L (7-40); Albumin 3.2 g/dL (3.2-4.8); Alkaline Phosphatase 89 U/L (46-116); Aspartate Aminotransferase 28 U/L (13-40); BUN/Creatinine Ratio 19.5 (10.0-20.0); Blood Urea Nitrogen 17 mg/dL (9-23); Calcium 8.2 mg/dL (8.5-10.1); Carbon Dioxide 24 mmol/L (20-30); Glucose 156 mg/dL (74-106)
[2023-02-28 12:10] LABS: Bilirubin, Total 0.6 mg/dL (0.2-1.0); Pre Albumin 16.4 md/dL (10.0-40.0); Total Protein 6.1 g/dL (5.7-8.2)
[2023-02-28 12:18] LABS: CRP High Sensitivity 2.79 mg/dL (<1.0)
[2023-02-28 12:29] LABS: Erythrocyte Sedimentation Rate 90 mm/hr (0-20)
[2023-02-28 12:47] LABS: Anion Gap 6 (5-15); Chloride 107 mmol/L (98-107); Potassium 4.4 mmol/L (3.5-5.1); Sodium 137 mmol/L (136-145)
[2023-02-28] MEDS ORDERED: AZIT500T66 PO ×2 (14:23→14:35)
[2023-02-28] MEDS ORDERED: PANT40T PO (14:23)
[2023-02-28 15:48] LABS: Thyroid Stimulating Hormone 0.72 uIU/mL (0.55-4.78)
[2023-02-28 15:51] LABS: Ferritin > 1650.0 ng/mL (10-291)
[2023-02-28 15:52] LABS: Folate (Folic Acid) > 24.00 ng/mL (>5.38); Free T4 (Free Thyroxine) 1.32 ng/dL (0.89-1.76)
== END 2023-02-28 17:50 | disposition home or self-care (01) | DRG 840 ==
LOC: ER 13:04 → EDBD 13:04 → TELE 22:27 → TELE-WESTW 23:52
PROVIDERS: ADMIT Internal Medicine; ATTEND Student in an Organized Health Care Education/Training Program
PROC: 30233N1 Transfusion of Nonautologous Red Blood Cells into Peripheral Vein, Percutaneous Approach (ICD-10-PCS; principal; 2023-02-27)
DX: C90.00 Multiple myeloma not having achieved remission (principal); J18.9 Pneumonia, unspecified organism; N17.9 Acute kidney failure, unspecified; E46 Unspecified protein-calorie malnutrition; Z68.1 Body mass index [BMI] 19.9 or less, adult; I50.30 Unspecified diastolic (congestive) heart failure; D64.9 Anemia, unspecified; E87.5 Hyperkalemia; R62.7 Adult failure to thrive; E11.9 Type 2 diabetes mellitus without complications; D75.839 Thrombocytosis, unspecified; E78.00 Pure hypercholesterolemia, unspecified; I11.0 Hypertensive heart disease with heart failure; Z82.49 Family history of ischemic heart disease and other diseases of the circulatory system; Z83.3 Family history of diabetes mellitus; Z86.718 Personal history of other venous thrombosis and embolism; Z87.442 Personal history of urinary calculi; Z90.710 Acquired absence of both cervix and uterus; Z91.148 Patient's other noncompliance with medication regimen for other reason; I25.2 Old myocardial infarction
CPT/HCPCS: 36415; 70450; 71045; 80053; 82040; 82232; 82607; 82668; 82728; 82746; 82784; 82962; 83010; 83540; 83550; 83605; 83615; 83690; 83735; 83880; 83883; 84439; 84443; 84484; 85025; 85045; 85384; 85610; 85652; 86141; 86334; 86431; 86850; 86880; 86900; 86901; 86920; 93005; 96365; C9113; G0378; J1815

== ENCOUNTER → 2023-03-18 | Outpatient (CLI) | payer OTHER ==
[~2023-03-18] MED LIST changes: +AZIT500T66 PO; +INSLANTI SC; +PANT40T PO
[2023-03-18 11:17] LABS: Basophils # (auto) 0 10 ^3/uL (0-0.2); Basophils % (auto) 0.9 % (0.0-2.0); Eosinophils # (auto) 0.1 10 ^3/uL (0-0.8); Eosinophils % (auto) 3.2 % (0.0-7.0); Hematocrit 29.9 % (36.0-46.0); Hemoglobin 9.9 g/dL (12.2-16.2); Lymphocytes # (auto) 0.7 10 ^3/uL (0.4-5.4); Lymphocytes % (auto) 18.9 % (10.0-50.0); Mean Corpuscular Volume 90.9 fL (80.0-100.0); Monocytes # (auto) 0.4 10 ^3/uL (0-1.3); Monocytes % (auto) 9.7 % (0.0-12.0); Neutrophils # (auto) 2.6 10 ^3/uL (1.6-8.6); Neutrophils % (auto) 67.3 % (37.0-80.0); Nucleated Red Blood Cells % 0.3 %; Red Blood Cells 3.29 10^6/uL (4.0-5.20); Red Cell Distribution Width 15.5 % (11.8-14.3); White Blood Cell 3.9 10^3/uL (4.4-10.8)
[2023-03-18 12:01] LABS: Alanine Aminotransferase 19 U/L (7-40); Alkaline Phosphatase 71 U/L (46-116); Anion Gap 7 (5-15); BUN/Creatinine Ratio 15.4 (10.0-20.0); Blood Urea Nitrogen 18 mg/dL (9-23); Calcium 9.6 mg/dL (8.5-10.1); Carbon Dioxide 31 mmol/L (20-30); Chloride 101 mmol/L (98-107); Glucose 147 mg/dL (74-106); Potassium 4.8 mmol/L (3.5-5.1); Sodium 139 mmol/L (136-145)
[2023-03-18 12:02] LABS: Albumin 4.2 g/dL (3.2-4.8); Aspartate Aminotransferase 21 U/L (13-40); Erythrocyte Sedimentation Rate 86 mm/hr (0-20)
[2023-03-18 12:03] LABS: Bilirubin, Total 0.4 mg/dL (0.2-1.0); Total Protein 7.7 g/dL (5.7-8.2)
[2023-03-19 08:07] LABS: Immunoglobulin A 291 mg/dL (64-422); Immunoglobulin G, Serum 1385 mg/dL (586-1602); Immunoglobulin M 56 mg/dL (26-217)
== END | disposition home or self-care (01) ==
LOC: LAB 10:37
PROVIDERS: ATTEND Internal Medicine Hematology & Oncology
DX: C90.00 Multiple myeloma not having achieved remission (principal); E11.69 Type 2 diabetes mellitus with other specified complication; E11.22 Type 2 diabetes mellitus with diabetic chronic kidney disease; N18.9 Chronic kidney disease, unspecified; D63.1 Anemia in chronic kidney disease
CPT/HCPCS: 36415; 80053; 82784; 83615; 83883; 84155; 84165; 85025; 85652; 86334; 86335

== ENCOUNTER → 2023-04-05 | Outpatient (CLI) | payer OTHER ==
[2023-04-05 10:17] LABS: Basophils # (auto) 0 10 ^3/uL (0-0.2); Eosinophils # (auto) 0.1 10 ^3/uL (0-0.8); Eosinophils % (auto) 3.8 % (0.0-7.0); Hematocrit 30.2 % (36.0-46.0); Hemoglobin 9.7 g/dL (12.2-16.2); Lymphocytes # (auto) 0.7 10 ^3/uL (0.4-5.4); Lymphocytes % (auto) 22.3 % (10.0-50.0); Mean Corpuscular Hemoglobin 28.8 pg (28.0-32.0); Mean Corpuscular Hgb Conc. 32.1 g/dL (32.0-36.0); Mean Corpuscular Volume 89.6 fL (80.0-100.0); Monocytes # (auto) 0.4 10 ^3/uL (0-1.3); Monocytes % (auto) 12.3 % (0.0-12.0); Neutrophils % (auto) 60.6 % (37.0-80.0); Nucleated Red Blood Cells % 0.2 %; Red Blood Cells 3.37 10^6/uL (4.0-5.20); Red Cell Distribution Width 15.6 % (11.8-14.3); White Blood Cell 3.3 10^3/uL (4.4-10.8)
[2023-04-05 10:32] LABS: Urine Bacteria FEW /hpf (None Seen); Urine Blood 1+ /uL (Negative); Urine Clarity CLOUDY (Clear); Urine Color Colorless (Yellow); Urine Protein, UAD TRACE (Negative); Urine Specific Gravity 1.016 (1.001-1.035); Urine Urobilinogen Normal (Negative); Urine WBC 2278 /hpf (0 - 5); Urine WBC Clumps PRESENT /hpf (None Seen); Urine pH 6.5 (5.0-8.0)
[2023-04-05 10:44] LABS: Potassium 4.9 mmol/L (3.5-5.1)
[2023-04-05 10:45] LABS: Calcium 9.7 mg/dL (8.7-10.4)
[2023-04-05 10:49] LABS: Uric Acid 6.5 mg/dL (3.1-7.8)
[2023-04-05 10:50] LABS: BUN/Creatinine Ratio 14.9 (10.0-20.0)
[2023-04-05 10:51] LABS: Protein, Urine 20.3 mg/dL (0.0-11.9)
[2023-04-05 10:52] LABS: Albumin 4.3 g/dL (3.2-4.8)
[2023-04-05 10:53] LABS: Phosphorus 4.3 mg/dL (2.4-5.1)
[2023-04-05 10:54] LABS: Creatinine, Urine 41.36 mg/dL (30.0-125.0); Urine Protein/Creatinine Ratio 0.49
== END | disposition home or self-care (01) ==
LOC: LAB 09:49
PROVIDERS: ATTEND Internal Medicine
DX: I12.9 Hypertensive chronic kidney disease with stage 1 through stage 4 chronic kidney disease, or unspecified chronic kidney disease (principal); N18.32 Chronic kidney disease, stage 3b; M10.9 Gout, unspecified; E86.9 Volume depletion, unspecified; E11.40 Type 2 diabetes mellitus with diabetic neuropathy, unspecified; R80.9 Proteinuria, unspecified; I50.1 Left ventricular failure, unspecified; D63.1 Anemia in chronic kidney disease
CPT/HCPCS: 36415; 80069; 81001; 82306; 82570; 83970; 84156; 84550; 85025; 87086; 87088; 87186